=== PATIENT | female | born 2005 | race Two or more races ===

== ENCOUNTER 2024-02-17 16:09 | Emergency (ER) | payer MEDICAID, OTHER ==
[~2024-02-17] VITALS: Ht 157.5 cm; Wt 54.0 kg
[2024-02-17 16:36] VITALS: BP 117/71; PULSE 107; RESP 18; O2SAT 97
[2024-02-17] MEDS: ONDANSETRON ODT 4 MG TAB PO ONE (17:24)
[2024-02-17 17:50] LABS: Basophils # (auto) 0 10 ^3/uL (0-0.2); Basophils % (auto) 0.2 % (0.0-2.0); Eosinophils # (auto) 0 10 ^3/uL (0-0.8); Eosinophils % (auto) 0.3 % (0.0-7.0); Hemoglobin 14.9 g/dL (12.2-16.2); Lymphocytes # (auto) 0.7 10 ^3/uL (0.4-5.4); Lymphocytes % (auto) 10.3 % (10.0-50.0); Mean Corpuscular Hemoglobin 32.6 pg (28.0-32.0); Mean Corpuscular Hgb Conc. 35.6 g/dL (32.0-36.0); Mean Corpuscular Volume 91.8 fL (80.0-100.0); Monocytes # (auto) 0.6 10 ^3/uL (0-1.3); Monocytes % (auto) 9.4 % (0.0-12.0); Neutrophils # (auto) 5.4 10 ^3/uL (1.6-8.6); Neutrophils % (auto) 79.8 % (37.0-80.0); Platelet Count (auto) 229 10^3/uL (140-450); Red Blood Cells 4.57 10^6/uL (4.0-5.20); Red Cell Distribution Width 12.5 % (11.8-14.3); White Blood Cell 6.7 10^3/uL (4.4-10.8)
[2024-02-17 17:57] LABS: Chloride 107 mmol/L (98-107); Potassium 3.6 mmol/L (3.5-5.1); Sodium 140 mmol/L (136-145)
[2024-02-17 17:58] LABS: Anion Gap 8 (5-15); Carbon Dioxide 25 mmol/L (20-31)
[2024-02-17 17:59] LABS: Calcium 9.4 mg/dL (8.7-10.4)
[2024-02-17 18:03] LABS: BUN/Creatinine Ratio 9.6 (10.0-20.0); Blood Urea Nitrogen 8 mg/dL (9-23); Glucose 96 mg/dL (74-106)
[2024-02-17 18:23] LABS: Urine Bacteria FEW /hpf (None Seen); Urine Blood Negative /uL (Negative); Urine Clarity Turbid (Clear); Urine Color Light-Orange (Yellow); Urine Mucus FEW (None Seen); Urine Protein, UAD 1+ (Negative); Urine Urobilinogen 2 mg/dL (Negative); Urine WBC 7 /hpf (0 - 5)
[2024-02-17] MEDS ORDERED: ZOFR4T PO (18:38)
== END 2024-02-17 19:12 | disposition home or self-care (01) ==
LOC: ER 16:09
DX: A05.9 Bacterial foodborne intoxication, unspecified (principal); Z79.899 Other long term (current) drug therapy
CPT/HCPCS: 36415; 80048; 81001; 81025; 85025; 99283; Q0162

== ENCOUNTER 2024-03-27 19:44 | Day surgery (SDC) | payer MEDICAID ==
[~2024-03-27] VITALS: Ht 157.5 cm; Wt 58.5 kg
[~2024-03-27 19:44] MED LIST: ZOFR4T PO
[2024-03-27 20:30] LABS: Basophils # (auto) 0 10 ^3/uL (0-0.2); Basophils % (auto) 0.4 % (0.0-2.0); Eosinophils # (auto) 0.1 10 ^3/uL (0-0.8); Eosinophils % (auto) 1.5 % (0.0-7.0); Hematocrit 37.6 % (36.0-46.0); Hemoglobin 13.5 g/dL (12.2-16.2); Lymphocytes # (auto) 2.4 10 ^3/uL (0.4-5.4); Lymphocytes % (auto) 30.9 % (10.0-50.0); Mean Corpuscular Hgb Conc. 35.9 g/dL (32.0-36.0); Monocytes # (auto) 0.6 10 ^3/uL (0-1.3); Monocytes % (auto) 7.6 % (0.0-12.0); Neutrophils # (auto) 4.6 10 ^3/uL (1.6-8.6); Neutrophils % (auto) 59.6 % (37.0-80.0); Nucleated Red Blood Cells % 0.1 %; Platelet Count (auto) 267 10^3/uL (140-450); Red Blood Cells 4.09 10^6/uL (4.0-5.20); White Blood Cell 7.7 10^3/uL (4.4-10.8)
--- NOTE | 2024-03-27 20:31 | ED.PDOC ---
History of Present Illness HPI Comments 18 y/o F, with a Hx of untreated anxiety and bipolar disorder, presents with c/o non-radiating, lower abdominal pain and abnormal vaginal bleeding, today. Patient endorses on, recently, learning of her first ([id number]) and having onset of sever abdominal pain for the past 1-2 weeks, with light spotting that has, gradually, gotten heavier within the past week. Patient comments on pain at its worst being a 10/10 and it, now, being a 7/10. Patient informs further on taking a Plan B pill on 02/14/24 and her LMP taking place 02/15/24. Patient states on having a BODY SHOP MANAGER and consulting them regarding symptoms and being told on those symptoms to be expected with her in addition to giving an expected delivery date of 11/2024. Patient denies having any hematuria, nausea, vomiting, diarrhea, weakness, lightheadedness, or other associated symptoms or modifiers at this time. Chief Complaint: Vaginal Bleed Time Seen by MD: 19:55 Reviewed Notes: Nurses Notes, Medications, Allergies Allergies: Coded Allergies: NO KNOWN ALLERGIES (Unverified , 02/17/24) Home Meds Active Scripts Hydrocodone-Acetaminophen (Hydrocodone/Acetaminophen 5-325 mg) 1 Tab Tab, 1 TAB PO Q6HPRN PRN for 5 Days, #20 TAB Prov:CLOVIS LEWIS DO 03/27/24 Ibuprofen (Ibuprofen) 800 Mg Tab, 800 MG PO TID PRN for 15 Days, #40 TAB Prov:CLOVIS LEWIS DO 03/27/24 Ondansetron Odt 4MG Tab (ZOFRAN PO) 4 Mg Tb, 4 MG PO Q8HP PRN for 5 Days, #15 TAB ODT TAB-DISSOLVE IN MOUTH, THEN SWALLOW Prov:OVIDIO VASQUEZ MD 02/17/24 Information Source: Patient Mode of Arrival: Ambulatory Severity: Moderate Timing: Weeks Duration: Since onset Prehospital treatment: None Past Medical History PAST MEDICAL HISTORY: Anxiety Past Medical History (Other): bipolar disorder Surgical History: Denies all surgeries BRONZER History: No Pertinent BRONZER History 1 Para 0 AB 0 LMP 02/15/2024 Family History Family History: Unknown Social History Smoker: Non-Smoker Alcohol: Denies ETOH Use Drugs: Denies Drug Use Lives In: Home Constitutional: denies: chills, diaphoresis, fatigue, fever, malaise, sweats, weakness, others EENTM: denies: blurred vision, double vision, ear bleeding, ear discharge, ear drainage, ear pain, ear ringing, eye pain, eye redness, hearing loss, mouth pain, mouth swelling, nasal discharge, nose bleeding, nose congestion, nose pain, photophobia, tearing, throat pain, throat swelling, voice changes, others Respiratory: denies: cough, hemoptysis, orthopnea, SOB at rest, shortness of breath, SOB with excertion, stridor, wheezing, others Cardiovascular: denies: chest pain, dizzy spells, diaphoresis, Dyspnea on exertion, edema, irregular heart beat, left arm pain, lightheadedness, palpitations, PND, syncope, others Gastrointestinal: reports: abdominal pain; denies: abdomen distended, blood streaked bowels, constipated, diarrhea, dysphagia, difficulty swallowing, hematemesis, melena, nausea, poor appetite, poor fluid intake, rectal bleeding, rectal pain, vomiting, others Genitourinary: reports: abnormal vagina bleeding; denies: burning, dyspareunia, dysuria, flank pain, frequency, hematuria, incontinence, pain, , vagina discharge, urgency, others Neurological: denies: dizziness, fainting, headache, left sided numbness, left sided weakness, numbness, paresthesia, pre-existing deficit, right sided numbness, right sided weakness, seizure, speech problems, tingling, tremors, weakness, others Musculoskeletal: denies: back pain, gout, joint pain, joint swelling, muscle pain, muscle stiffness, neck pain, others Integumetry: denies: bruises, change in color, change in hair/nails, dryness, laceration, lesions, lumps, rash, wounds, others Allergic/Immunocompromised: denies: Difficulty Healing, Frequent Infections, Hives, Itching, others Hematologic/Lymphatic: denies: anemia, blood clots, easy bleeding, easy bruising, swollen glands, others Endocrine: denies: excessive hunger, excessive sweating, excessive thirst, excessive urination, flushing, intolerance to cold, intolerance to heat, unexplained weight gain, unexplained weight loss, others Psychiatric: denies: anxiety, bipolar disorder, depression, hopeless, panic disorder, schizophrenia, sleepless, suicidal, others All Other Systems: Reviewed and Negative Physical Exam General Appearance: No Apparent Distress, Normal HEENT: Normal ENT Inspection, Pharynx Normal, TMs Normal Neck: Full Range of Motion, Non-Tender, Normal, Normal Inspection Respiratory: Chest Non-Tender, Lungs Clear, No Accessory Muscle Use, No Respiratory Distress, Normal Breath Sounds Cardiovascular: No Edema, No JVD, No Murmur, No Gallop, Normal Peripheral Pulses, Regular Rate/Rhythm Breast Exam: Deferred Gastrointestinal: No Organomegaly, Non Tender, No Pulsatile Mass, Normal Bowel Sounds, Soft Genitalia: Deferred Pelvic: Deferred Rectal: Deferred Extremities: No calf tenderness, Normal capillary refill, Normal inspection, Normal range of motion, Non-tender, No pedal edema Musculoskeletal : Apperance: Normal Neurologic: Alert, grapple operator II-XII nml as Tested, No Motor Deficits, Normal Affect, Normal Mood, No Sensory Deficits Cerebellar Function: Normal Reflexes: Normal Skin: Dry, Normal Color, Warm Lymphatic: No Adenopathy Was a procedure done? Was a procedure done?: No Differential Dx Considerations may include: menorrhagia, metrorrhagia, menometrorrhagia, dysmenorrhea, , ectopic , UTI, viral syndrome X-Ray, Labs, Meds, VS Vital Signs Date Time Temp Pulse Resp B/P (MAP) Pulse Ox O2 Delivery O2 Flow Rate FiO2 03/28/24 00:13 103 11 100 Room Air* 0 21 03/27/24 23:13 98.2 103 11 125/105 (112) 100 98.2 03/27/24 19:50 99.1 92 18 121/81 (94) 99 Lab Test 03/27/24 20:23 03/27/24 20:06 Range/Units Urine Color Light-yellow Yellow Urine Clarity Turbid H Clear Urine pH 5.5 5.0-9.0 Urine Specific Mck[place] 1.011 1.001-1.035 Urine Protein Negative Negative Urine Ketones Negative Negative Urine Blood 2+ H Negative /uL Urine Nitrite Negative Negative Urine Bilirubin Negative Negative Urine Urobilinogen Normal Negative mg/dL Urine Leukocyte Esterase Negative Negative /uL Urine RBC 7 0 - 4 /hpf Urine WBC 5 0 - 5 /hpf Urine Squamous Epithelial Cells Mod <5 /hpf Urine Bacteria Few H None Seen /hpf Urine Glucose Trace Normal mg/dL White Blood Count 7.7 4.4-10.8 10^3/uL Red Blood Count 4.09 4.0-5.20 10^6/uL Hemoglobin 13.5 12.2-16.2 g/dL Hematocrit 37.6 36.0-46.0 % Mean Corpuscular Volume 92.0 80.0-100.0 fL Mean Corpuscular Hemoglobin 33.0 H 28.0-32.0 pg Mean Corpuscular Hemoglobin Concent 35.9 32.0-36.0 g/dL Red Cell Distribution Width 12.0 11.8-14.3 % Platelet Count 267 140-450 10^3/uL Mean Platelet Volume 7.3 6.9-10.8 fL Neutrophils (%) (Auto) 59.6 37.0-80.0 % Lymphocytes (%) (Auto) 30.9 10.0-50.0 % Monocytes (%) (Auto) 7.6 0.0-12.0 % Eosinophils (%) (Auto) 1.5 0.0-7.0 % Basophils (%) (Auto) 0.4 0.0-2.0 % Neutrophils # (Auto) 4.6 1.6-8.6 10 ^3/uL Lymphocytes # (Auto) 2.4 0.4-5.4 10 ^3/uL Monocytes # (Auto) 0.6 0-1.3 10 ^3/uL Eosinophils # (Auto) 0.1 0-0.8 10 ^3/uL Basophils # (Auto) 0 0-0.2 10 ^3/uL Nucleated Red Blood Cells 0.1 % Sodium Level 139 136-145 mmol/L Potassium Level 3.5 3.5-5.1 mmol/L Chloride Level 107 98-107 mmol/L Carbon Dioxide Level 26 20-31 mmol/L Anion Gap 6 5-15 Blood Urea Nitrogen 6 L 9-23 mg/dL Creatinine 0.76 0.550-1.02 mg/dL Glomerular Filtration Rate Calc 116 >90 mL/min BUN/Creatinine Ratio 7.9 L 10.0-20.0 Serum Glucose 131 H 74-106 mg/dL Calcium Level 9.8 8.7-10.4 mg/dL Total Bilirubin 0.5 0.2-1.0 mg/dL Aspartate Amino Transferase (AST) 8 L 13-40 U/L Alanine Aminotransferase (ALT) 11 7-40 U/L Alkaline Phosphatase 83 46-116 U/L Total Protein 7.3 5.7-8.2 g/dL Albumin 4.5 3.2-4.8 g/dL Beta HCG, Quantitative 2911.7 H 1.5-4.2 mIU/mL X-Ray, Labs, Meds, VS Comment Spoke with Dr.Garibaldy KITCHEN on-call, he was to take patient to surgery tonight. Time of 1ST Reevaluation: 20:25 Reevaluation 1ST: Unchanged Patient Education/Counseling: Diagnosis, Treatment Family Education/Counseling: No Family Present Departure 1 Departure Time of Disposition: 00:32 Impression: Primary Impression: Ectopic of right ovary Disposition: ADMITTED INPATIENT Condition: Fair e-Prescriptions Hydrocodone-Acetaminophen (Hydrocodone/Acetaminophen 5-325 mg) 1 Tab Tab 1 TAB PO Q6HPRN PRN for 5 Days, #20 TAB Prov: CLOVSI LEWIS DO 03/27/24 Ibuprofen (Ibuprofen) 800 Mg Tab 800 MG PO TID PRN for 15 Days, #40 TAB Prov: CLOVIS LEWIS DO 03/27/24 Discharged With: Self Critical Care Note Critical Care Time?: No Stability Stability form required: No Heart Score Heart Score: Heart Score Response (Comments) Value History N/A 0 EKG N/A 0 Age N/A 0 Risk Factors N/A 0 Troponin N/A 0 Total 0 I personally scribed for DAYAN STRANGE ([email or web address]) on 03/27/24 at 20:31. Electronically submitted by Blade Charles ([email or web address]). DAYAN STRANGE Mar 27, 2024 20:31
[2024-03-27 20:48] LABS: Alanine Aminotransferase 11 U/L (7-40); Albumin 4.5 g/dL (3.2-4.8); Alkaline Phosphatase 83 U/L (46-116); Anion Gap 6 (5-15); Aspartate Aminotransferase 8 U/L (13-40); BUN/Creatinine Ratio 7.9 (10.0-20.0); Bilirubin, Total 0.5 mg/dL (0.2-1.0); Blood Urea Nitrogen 6 mg/dL (9-23); Calcium 9.8 mg/dL (8.7-10.4); Carbon Dioxide 26 mmol/L (20-31); Chloride 107 mmol/L (98-107); Glucose 131 mg/dL (74-106); Potassium 3.5 mmol/L (3.5-5.1); Sodium 139 mmol/L (136-145)
[2024-03-27 20:49] LABS: Total Protein 7.3 g/dL (5.7-8.2)
[2024-03-27 20:55] LABS: Urine Bacteria FEW /hpf (None Seen); Urine Blood 2+ /uL (Negative); Urine Clarity Turbid (Clear); Urine Color Light-Yellow (Yellow); Urine Protein, UAD Negative (Negative); Urine Specific Gravity 1.011 (1.001-1.035); Urine Squamous Epithelial Cell MOD /hpf (<5); Urine Urobilinogen Normal (Negative); Urine WBC 5 /hpf (0 - 5); Urine pH 5.5 (5.0-9.0)
--- NOTE | 2024-03-27 23:02 | DVH ---
OBSTETRIC ULTRASOUND PRIOR TO 14 WEEKS CLINICAL INDICATION: abd pain/ vag bleed TECHNIQUE: Multiple grayscale ultrasound images were obtained of the pelvis via transabdominal and tr ansvaginal approach for obstetric evaluation. Limited color Doppler and spectral Doppler acquisitions were also obtained. COMPARISON: None FINDINGS: Uterus: 8.2 x 6.0 x 6.7 cm. No intrauterine gestational sac Right adnexa: right ovary 3.6 x 2.6 x 3.8 cm. Normal arterial blood flow in the ovary. No right adne xal mass seen. Simple cyst in the right ovary measures 2.2 cm Left adnexa: left ovary 1.9 x 1.6 x 2.2 cm. Normal arterial blood flow in the ovary. No left adnexal mass seen. There is a gestational sac with a yolk sac adjacent to the left ovary measuring 0.6 cm. A yolk sac is visualized. No pole is seen at this time. Other: Complex pelvic fluid with intermediate echogenicity likely blood products. IMPRESSION: 1. Left adnexal ectopic is visualized. 2. Hemoperitoneum in the pelvis. Critical Result: Left ectopic . Findings discussed with Yasir JARA , at 03/27/2024 10:56 PM, and acknowledged receipt and understanding of the findings. ..
--- NOTE | 2024-03-27 23:57 | DVHHP2 ---
CREDIT ADJUSTER CC & HPI Date Date of Admission: Mar 27, 2024 Chief Complaints: Reason for admission: Left Ectopic (tubal) History of Present Complaints History of Present Complaints 18y G1Po LMP 02/15/24 EGA 6 weeks Presented with pelvic pain and vaginal bleeding x 1 week Pelvic US reveal GS and YS in left adnexa, no pole/FHR seen Complex free fluid in pelvis. Pain level 6/10 now, earlier it was 10/10. HCG quant 2911 Blood type A Rh positive. Past Medical History Cardiac: No pertinent Hx Pulmonary: No pertinent Hx Central Nervous System: No pertinent Hx GI: No pertinent Hx Hemotology/Oncology: No pertinent Hx Hepatobiliary: No pertinent Hx Psychiatric: No pertinent Hx Musculoskeletal: No pertinent Hx Rheumotologic: No pertinent Hx Infectious Disease: No peritnent Hx ENT: No pertinent Hx Renal/: No pertinent Hx Endocrine: No pertinent Hx Dermatology: No pertinent Hx Past Surgical History: No pertinent Hx CREDIT ADJUSTER History CREDIT ADJUSTER History CREDIT ADJUSTER History: Denies any history of STI Allergies: Coded Allergies: NO KNOWN ALLERGIES (Unverified , 02/17/24) Home Meds Active Scripts Hydrocodone-Acetaminophen (Hydrocodone/Acetaminophen 5-325 mg) 1 Tab Tab, 1 TAB PO Q6HPRN PRN for 5 Days, #20 TAB Prov:CLOVIS LEWIS DO 03/27/24 Ibuprofen (Ibuprofen) 800 Mg Tab, 800 MG PO TID PRN for 15 Days, #40 TAB Prov:CLOVIS LEWIS DO 03/27/24 Ondansetron Odt 4MG Tab (ZOFRAN PO) 4 Mg Tb, 4 MG PO Q8HP PRN for 5 Days, #15 TAB ODT TAB-DISSOLVE IN MOUTH, THEN SWALLOW Prov:OVIDIO VASQUEZ MD 02/17/24 Current Medications Current Medications Medications (Trade) Dose Ordered Sig/Isabella Route PRN Reason Start Time Stop Time Status Last Admin Lactated Ringer's 1,000 ml @ 125 mls/hr Q8H IV 03/28/24 00:00 UNV Social History Single. NO EtOH, drug or Tobacco use Occupation, works at [employer] Review of Systems Constitutional: No symptom reported Ears, Nose, & Throat: No symptom reported Eyes: No symptom reported Pulmonary/Respiratory: No symptom reported Cardiovascular: No symptom reported Gastrointestinal: Abdominal Pain Genitourinary: No symptom reported Musculoskeletal: No symptom reported Skin: No symptom reported Psychiatric: No symptom reported Endocrine: No symptom reported Hemotologic/Lymphatic: No symptom reported Physical Exam Physical Exam Vitals: Vital Signs Date Time Temp Pulse Resp B/P (MAP) Pulse Ox O2 Delivery O2 Flow Rate FiO2 03/27/24 19:50 99.1 92 18 121/81 (94) 99 HEENT: NCAT Heart: Rhythm Normal Lungs: Clear Abdomen: Other (Mildly tender in LLQ, no rebound) Extremities: Normal Reflexes: Normal Pediatric Critical Care Nurse/Pelvic Exam: Not done Assessment and Plan Plan Assessment and Plan: DIAGNOSIS: 1. Ectopic (left tubal by Ultrasound with moderate complex free fluid) Plan: Patient declined treatment with MTX, plus surgery recommended instead of medical treatment due to increased free fluid and moderate/severe acute pain suspicious for iminent or ongoing rupture of ectopic Consented for : Operative laparoscopic left (vs. right) Salpingectomy, possible laparotomy, removal of ectopic . Risks of pain, scar, bleeding, infection, injury to bowel/bladder, adjacent organs all discussed w/ patient in detail Patient is Jehova witness, DECLINES ALL BLOOD PRODUCTS. Date of Service: Mar 27, 2024 Billing Provider: CLOVIS LEWIS DO Common Visit Codes: 90218-XEIOFLX INP/OBS CARE (HIGH) CLOVIS LEWIS DO Mar 27, 2024 23:57
[2024-03-27] MEDS ORDERED: IBUP-1456 PO (23:58)
[2024-03-27] MEDS ORDERED: HYDR1TAB97 PO (23:58)
[2024-03-28] MEDS ORDERED: LACTATED RINGER'S 1,000 ML IV SCH
[2024-03-28] MEDS ORDERED: ceFAZolin 2 GM/D5W50ml 50 ML IV ONE
[2024-03-28 00:13] VITALS: PULSE 103; RESP 11; O2SAT 100
[2024-03-28] MEDS ORDERED: PROPOFOL 10 MG/ML 20 ML IV ONE (00:15)
[2024-03-28] MEDS ORDERED: ONDANSETRON HCL 4 MG/2 ML VIAL ONE (00:15)
[2024-03-28] MEDS ORDERED: LIDOCAINE 2% (LOCAL ANESTH.) PF 5ml SDV ONE (00:15)
[2024-03-28] MEDS ORDERED: ceFAZolin 2 GM/D5W100ml 100 ML IV ONE (00:16)
[2024-03-28] MEDS ORDERED: MIDAZOLAM HCL 2MG/2ML 2ml VIAL (1mg/ml) ONE (00:21)
[2024-03-28] MEDS ORDERED: fentaNYL CITRATE 100 MCG/2 ML VL ONE (00:21)
[2024-03-28] MEDS ORDERED: NEOSTIGMINE 1 MG/ML INJ (10mg/10ML VIAL) ONE (01:31)
[2024-03-28] MEDS ORDERED: GLYCOPYRROLATE 0.2 MG/ML 1ML VIAL ONE (01:31)
[2024-03-28 01:47] VITALS: PULSE 102; RESP 15; TEMP 97.1; O2SAT 100
--- NOTE | 2024-03-28 01:48 | DVHDS2 ---
Physician Discharge Progress N Final Diagnosis: Ectopic (Left Tubal ) s/p Left partial salpingectomy Operations or Procedures: Operations or Procedures Operative laparoscopy, evacuation of hemoperitoneum, Left partial salpingectomy Commentary: Commentary Uncomplicated surgery and PACU recovery Hemodynamically stable Rh+ Discharged in stable condition Condition on Discharge: Stable Disposition: Home Discharge Instructions: Diet: Regular Activity: Light activity Activity comment: Pelvic rest x 2 weeks Follow Up/Referral: [address] [facility] make appt please Medications: [place] 5mg, Ibuprofen eRx sent Follow Up Care: Discharge Statement: "Patient was advised to return to the ER or call 911 if any headaches, dizziness, shortness of breath, chest pain, abdominal pain, bleeding, fevers, or worsening of medical condition. Patient was counseled about treatment plan, medications, possible side effects, patientverbalized understanding. All questions were answered to the best of my ability. This discharge took greater then 30 minutes in planning, reviewing documentation, counseling the patient, and discussing with other team members." CLOVIS LEWIS DO Mar 28, 2024 01:48
[2024-03-28] MEDS ORDERED: HYDROmorphone HCL 2 MG/ML VL/or syr ONE (01:52)
[2024-03-28] MEDS: HYDROmorphone HCL 2 MG/ML VL/or syr IV PRN (01:55)
[2024-03-28] MEDS: BUPIVACAINE 0.25% INJ 50ML VIAL ONE (01:59)
[2024-03-28 02:00] VITALS: PULSE 94; RESP 10; O2SAT 96
[2024-03-28] MEDS ORDERED: HYDROmorphone HCL 2 MG/ML VL/or syr IV PRN (02:00)
[2024-03-28 02:27] VITALS: O2SAT 96
[2024-03-28 02:42] VITALS: BP 100/52; PULSE 85; RESP 20
--- NOTE | 2024-03-28 02:59 | DVHOP ---
DATE OF SURGERY: 03/28/2024 PREOPERATIVE DIAGNOSES: * Ectopic . * Hemoperitoneum. FINAL DIAGNOSES: * Ectopic (Left tubal ampullary ) * Hemoperitoneum. PROCEDURES PERFORMED: * Operative laparoscopic left partial salpingectomy. * Evacuation of hemoperitoneum. SURGEON: Kenneth Jones DO PUBLIC HEALTH PROGRAM MANAGER: senior laboratory technician. TYPE OF ANESTHESIA: General endotracheal. ANESTHESIOLOGIST: Dr. Lehman. DESCRIPTION OF FINDINGS: Normal size uterus. Uterine cavity sounds to 9 cm. The right fallopian tube and ovary were within normal limits. Appendix visualized and normal. The left fallopian tube contained a 3 cm ampullary ectopic with partial rupture. There was bleeding from the fimbriated end. There was approximately 50-75 mL of hemoperitoneum present in the cul-de-sac. The ovary was normal on the left and not removed. A partial left salpingectomy performed. TECHNICAL PROCEDURE: After informed consent was obtained, the patient was taken to the operating room where she underwent smooth induction with general anesthesia. The patient was placed in the dorsal lithotomy position in Baltazar stirrups. The vagina, perineum and abdomen were thoroughly prepped, and the patient sterilely draped in usual fashion. A pelvic exam was then performed under anesthesia with the above-noted findings. A weighted speculum was placed into the patient's vagina. The anterior lip of the cervix was grasped with a single tooth tenaculum. Uterine cavity sounded to 9 cm. The cervix was gently dilated with Khan dilators to accommodate a HUMI uterine manipulator. The manipulator was placed transcervically into the uterus. The balloon inflated. A Mccoy catheter was then placed. All instrumentation was removed from the patient's vagina. Attention was then placed to the patient's abdomen where the umbilical stump was everted and elevated with 2 Johny clamps. A 5 mm incision was made at the base of the umbilicus. A Veress needle was placed through the incision into the peritoneal cavity. Intraperitoneal placement was confirmed by the hanging water drop test. Carbon dioxide gas was infused and pneumoperitoneum obtained. Using a 5 mm Optiview trocar, the umbilical port was obtained. There was direct visualization of all abdominal layers. Intraperitoneal placement of the umbilical trocar was confirmed directly with the laparoscope. Survey of the abdomen and pelvis revealed the above-noted findings. Next, a 12 mm trocar was placed under direct visualization to the left of the patient's midline. A 5 mm trocar was placed to the right of midline under direct visualization. The certified physical therapist assistant elevated the fallopian tube. The distal ampullary end contained partial rupture with bleeding from the fimbriated end. There was a large ectopic present with clot adherent to the fallopian tube. Using the LigaSure device, the fallopian tube was divided across the mesosalpinx and detached from its connection to the ovary. The fallopian tube was then taken across the isthmic portion of the fallopian tube. The fallopian tube containing the ectopic was placed in an EndoCatch bag and the specimen delivered through the 12 mm port. The specimen was submitted to pathology. The abdomen and pelvis were thoroughly irrigated. Hemostasis was confirmed. I next proceeded to close the 10 and 12 port using 2 interrupted sutures of 0 Vicryl. Good tissue approximation was obtained. We closed this port using the Dylan-Yusra system. Next, the carbon dioxide gas was released. The instruments and the trocars were removed under direct visualization. The skin incisions were closed with 3-0 Monocryl. The 3 skin incisions were then injected with 0.25% Marcaine with epinephrine, approximately 20 mL of solution was used across the 3 incisions. A thin layer of Dermabond was then placed over the 3 skin incisions with good hemostasis noted. The Mccoy catheter was removed and the uterine manipulator was removed with no bleeding from the cervix. The patient was taken out of lithotomy position, awakened, and taken to recovery room in a stable condition. INTRAOPERATIVE COMPLICATIONS: None. ESTIMATED BLOOD LOSS: Less than 10 mL from the surgery, approximately 75 mL of hemoperitoneum. POSTOPERATIVE CONDITION: Stable. SPECIMENS: Left fallopian tube containing ectopic . MEDICATIONS: The patient received 2 grams of Ancef prior to skin incision. Kenneth Jones DO CG/HEM TID: [id number] [facility]: [id number] [facility]
[2024-03-28] MEDS: ONDANSETRON HCL 4 MG/2 ML VIAL IV ONE (03:10)
== END 2024-03-28 03:17 | disposition home or self-care (01) ==
LOC: ER 19:44 → SUR 19:45 → ER 03-28 00:14 → SUR 03-28 03:17
PROVIDERS: ATTEND Obstetrics & Gynecology
DX: O00.102 Left tubal pregnancy without intrauterine pregnancy (principal); K66.1 Hemoperitoneum; F31.9 Bipolar disorder, unspecified; K21.9 Gastro-esophageal reflux disease without esophagitis; F41.9 Anxiety disorder, unspecified; Z3A.01 Less than 8 weeks gestation of pregnancy
CPT/HCPCS: 36415; 59151; 76801; 76817; 80053; 81001; 84702; 85025; 86850; 86900; 86901; 88305; 96374; 96375; 99285; J0690; J1171; J2003; J2250; J2405; J2704; J3010; J3490

== ENCOUNTER 2024-06-26 | Emergency (ER) | payer MEDICAID, OTHER ==
[~2024-06-26] VITALS: Ht 157.5 cm; Wt 59.3 kg
[~2024-06-26] MED LIST changes: +HYDR1TAB97 PO; +IBUP-1456 PO
[2024-06-26 00:35] VITALS: BP 125/77; PULSE 67; RESP 16; O2SAT 99
== END 2024-06-26 04:32 | disposition left against medical advice (07) ==
LOC: ER
DX: R10.9 Unspecified abdominal pain (principal); Z53.21 Procedure and treatment not carried out due to patient leaving prior to being seen by health care provider

== ENCOUNTER 2024-08-05 15:07 | Emergency (ER) | payer OTHER ==
[~2024-08-05] VITALS: Ht 157.5 cm; Wt 58.3 kg
--- NOTE | 2024-08-05 15:47 | ED.PDOC ---
History of Present Illness HPI Comments 19 year old female presents to the ED with a chief complaint of ingestion onset today (08/05/24). Patient states she was experiencing abdominal pain, took 5 aspirin pills, 3 - 500 mg Ibuprofen pills. Patient states she is not suicidal, just wanted to improve pain. Poison control was called. PMHx anxiety. Denies suicidal ideation, homicidal ideation, nausea, vomiting, diarrhea, headache, dizziness, chest pain, shortness of breath. No other symptoms or modifying factors present at this time. Patient states she has had this abdominal pain for over a month, but does not follow up with the primary care provider or cytogenetics laboratory manager due to insurance concerns. Patient did not look toxic at time of evaluation. Chief Complaint: Ingestion Time Seen by MD: 15:35 Reviewed Notes: Nurses Notes, Medications, Allergies Allergies: Coded Allergies: NO KNOWN ALLERGIES (Unverified , 02/17/24) Home Meds Active Scripts Hydrocodone-Acetaminophen (Hydrocodone/Acetaminophen 5-325 mg) 1 Tab Tab, 1 TAB PO Q6HPRN PRN for 5 Days, #20 TAB Prov:CLOVIS LEWIS DO 03/27/24 Ibuprofen (Ibuprofen) 800 Mg Tab, 800 MG PO TID PRN for 15 Days, #40 TAB Prov:CLOVIS LEWIS DO 03/27/24 Ondansetron Odt 4MG Tab (ZOFRAN PO) 4 Mg Tb, 4 MG PO Q8HP PRN for 5 Days, #15 TAB ODT TAB-DISSOLVE IN MOUTH, THEN SWALLOW Prov:OVIDIO VASQUEZ MD 02/17/24 Information Source: Patient Mode of Arrival: Ambulatory Severity: Moderate Timing: Hours Duration: Since onset Prehospital treatment: Pain Meds Past Medical History PAST MEDICAL HISTORY: Anxiety Past Medical History (Other): Recent abdominal pain concerns Surgical History: Denies all surgeries AIRCRAFT MAINTENANCE TECHNICIAN History: No Pertinent AIRCRAFT MAINTENANCE TECHNICIAN History Family History Family History: Unknown Social History Smoker: Non-Smoker Alcohol: Denies ETOH Use Drugs: Denies Drug Use Lives In: Home Constitutional: denies: chills, diaphoresis, fatigue, fever, malaise, sweats, weakness, others EENTM: denies: blurred vision, double vision, ear bleeding, ear discharge, ear drainage, ear pain, ear ringing, eye pain, eye redness, hearing loss, mouth pain, mouth swelling, nasal discharge, nose bleeding, nose congestion, nose pain, photophobia, tearing, throat pain, throat swelling, voice changes, others Respiratory: denies: cough, hemoptysis, orthopnea, SOB at rest, shortness of breath, SOB with excertion, stridor, wheezing, others Cardiovascular: denies: chest pain, dizzy spells, diaphoresis, Dyspnea on exertion, edema, irregular heart beat, left arm pain, lightheadedness, palpitations, PND, syncope, others Gastrointestinal: reports: abdominal pain; denies: abdomen distended, blood streaked bowels, constipated, diarrhea, dysphagia, difficulty swallowing, hematemesis, melena, nausea, poor appetite, poor fluid intake, rectal bleeding, rectal pain, vomiting, others Genitourinary: denies: abnormal vagina bleeding, burning, dyspareunia, dysuria, flank pain, frequency, hematuria, incontinence, pain, , vagina discharge, urgency, others Neurological: denies: dizziness, fainting, headache, left sided numbness, left sided weakness, numbness, paresthesia, pre-existing deficit, right sided numbness, right sided weakness, seizure, speech problems, tingling, tremors, weakness, others Musculoskeletal: denies: back pain, gout, joint pain, joint swelling, muscle pain, muscle stiffness, neck pain, others Integumetry: denies: bruises, change in color, change in hair/nails, dryness, laceration, lesions, lumps, rash, wounds, others Allergic/Immunocompromised: denies: Difficulty Healing, Frequent Infections, Hives, Itching, others Hematologic/Lymphatic: denies: anemia, blood clots, easy bleeding, easy bruising, swollen glands, others Endocrine: denies: excessive hunger, excessive sweating, excessive thirst, excessive urination, flushing, intolerance to cold, intolerance to heat, unexplained weight gain, unexplained weight loss, others Psychiatric: denies: anxiety, bipolar disorder, depression, hopeless, panic disorder, schizophrenia, sleepless, suicidal, others All Other Systems: Reviewed and Negative Physical Exam General Appearance: Mild Distress ( patient appeared to be in mild discomfort at time of evaluation. Patient was engaging and did not seem altered.), Normal HEENT: Normal ENT Inspection, Pharynx Normal, TMs Normal Neck: Full Range of Motion, Non-Tender, Normal, Normal Inspection Respiratory: Chest Non-Tender, Lungs Clear, No Accessory Muscle Use, No Respiratory Distress, Normal Breath Sounds Cardiovascular: No Edema, No JVD, No Murmur, No Gallop, Normal Peripheral Pulses, Regular Rate/Rhythm Breast Exam: Deferred Gastrointestinal: No Pulsatile Mass, Normal Bowel Sounds, Soft, Other ( Diffuse periumbilical tenderness to palpation abdomen was reasonably soft. No signs of trauma. No pulsatile masses.) Genitalia: Deferred Pelvic: Deferred Rectal: Deferred Extremities: No calf tenderness, Normal capillary refill, Normal inspection, Normal range of motion, Non-tender, No pedal edema Musculoskeletal : Apperance: Normal Neurologic: Alert, No Motor Deficits, Normal Affect, Normal Mood, No Sensory Deficits Cerebellar Function: Normal Reflexes: Normal Skin: Dry, Normal Color, Warm Lymphatic: No Adenopathy Was a procedure done? Was a procedure done?: No Differential Dx Considerations may include: Overdose of ibuprofen and aspirin, abdominal pain, UTI, drug use, sepsis, electrolyte abnormality X-Ray, Labs, Meds, VS Vital Signs Date Time Temp Pulse Resp B/P (MAP) Pulse Ox O2 Delivery O2 Flow Rate FiO2 08/05/24 16:00 98.3 78 16 121/73 (89) 99 98.3 Lab Test 08/05/24 15:52 08/05/24 00:00 Range/Units White Blood Count 8.7 4.4-10.8 10^3/uL Red Blood Count 4.58 4.0-5.20 10^6/uL Hemoglobin 14.4 12.2-16.2 g/dL Hematocrit 41.7 36.0-46.0 % Mean Corpuscular Volume 91.0 80.0-100.0 fL Mean Corpuscular Hemoglobin 31.5 28.0-32.0 pg Mean Corpuscular Hemoglobin Concent 34.6 32.0-36.0 g/dL Red Cell Distribution Width 12.4 11.8-14.3 % Platelet Count 301 140-450 10^3/uL Mean Platelet Volume 7.4 6.9-10.8 fL Neutrophils (%) (Auto) 78.2 37.0-80.0 % Lymphocytes (%) (Auto) 16.9 10.0-50.0 % Monocytes (%) (Auto) 4.5 0.0-12.0 % Eosinophils (%) (Auto) 0.1 0.0-7.0 % Basophils (%) (Auto) 0.3 0.0-2.0 % Neutrophils # (Auto) 6.8 1.6-8.6 10 ^3/uL Lymphocytes # (Auto) 1.5 0.4-5.4 10 ^3/uL Monocytes # (Auto) 0.4 0-1.3 10 ^3/uL Eosinophils # (Auto) 0 0-0.8 10 ^3/uL Basophils # (Auto) 0 0-0.2 10 ^3/uL Nucleated Red Blood Cells 0.1 % Sodium Level 140 136-145 mmol/L Potassium Level 4.2 3.5-5.1 mmol/L Chloride Level 110 H 98-107 mmol/L Carbon Dioxide Level 20 20-31 mmol/L Anion Gap 10 5-15 Blood Urea Nitrogen 7 L 9-23 mg/dL Creatinine 0.87 0.550-1.02 mg/dL Glomerular Filtration Rate Calc 98 >90 mL/min BUN/Creatinine Ratio 8.0 L 10.0-20.0 Serum Glucose 97 74-106 mg/dL Calcium Level 9.8 8.7-10.4 mg/dL Salicylates Level 15.6 -30 mg/dL Urine Color Light-yellow Yellow Urine Clarity Clear Clear Urine pH 6.5 5.0-9.0 Urine Specific [place] 1.018 1.001-1.035 Urine Protein Negative Negative Urine Ketones Negative Negative Urine Blood 3+ H Negative /uL Urine Nitrite Negative Negative Urine Bilirubin Negative Negative Urine Urobilinogen Normal Negative mg/dL Urine Leukocyte Esterase Negative Negative /uL Urine RBC 1 0 - 4 /hpf Urine Microscopic WBC 3 0-5 /HPF Urine Squamous Epithelial Cells Few <5 /hpf Urine Bacteria None seen None Seen /hpf Urine Mucus Few None Seen Urine Glucose Normal Normal mg/dL Urine Opiates Screen Neg NEGATIVE Urine Fentanyl Screen Neg NEGATIVE Urine Barbiturates Screen Neg NEGATIVE Urine Phencyclidine Screen Neg NEGATIVE Urine Amphetamines Screen Neg NEGATIVE Urine Benzodiazepines Screen Neg NEGATIVE Urine Cocaine Screen Neg NEGATIVE Urine Cannabinoids Screen Pos NEGATIVE X-Ray, Labs, Meds, VS Comment All studies performed the ED were evaluated by me personally. laboratories were unremarkable for any systemic process and urinalysis was unremarkable for any urinary tract concerns. Drug screen was positive for cannabis. Patient responded well to medication dispensed. Advised patient utilize medication as needed for symptomatic relief in additionally, patient will have to establish a primary care provider or follow up as she at some point in time will need to see a cytogenetics laboratory manager if the abdominal pain complaints continued. Time of 1ST Reevaluation: 17:56 Reevaluation 1ST: Improved Consultation: PCP, GI Patient Education/Counseling: Diagnosis, Treatment, Prognosis Family Education/Counseling: Diagnosis, Treatment, No Family Present Departure 1 Departure Time of Disposition: 17:57 Impression: Primary Impression: Overdose by ingestion Additional Impression: Abdominal pain Disposition: 01 HOME / SELF CARE / HOMELESS Condition: Stable Additional Instructions: Advised patient utilize medication as directed and as needed for symptomatic relief. Patient needs to establish a primary care provider as she will require a cytogenetics laboratory manager if her abdominal pain complaints continued. e-Prescriptions Ondansetron Odt 4MG Tab (ZOFRAN PO) 4 Mg Tb 4 MG PO Q6HP PRN, #20 TAB ODT TAB-DISSOLVE IN MOUTH, THEN SWALLOW Prov: RAVEN ROSAS PAC 08/05/24 Dicyclomine Hcl (BENTYL CAPSULE) 10 Mg Cp 1 CAP PO Q6HP PRN, #20 CAP 0 Refills Prov: RAVEN ROSAS PAC 08/05/24 Discharged With: Self, Friend Critical Care Note Critical Care Time?: No Stability Stability form required: No Heart Score Heart Score: Heart Score Response (Comments) Value History N/A 0 EKG N/A 0 Age N/A 0 Risk Factors N/A 0 Troponin N/A 0 Total 0 I personally scribed for RAVEN ROSAS PAC ([email or web address]) on 08/05/24 at 15:47. Electronically submitted by Tamar Greenwood ([email or web address]). RAVEN ROSAS PAC Aug 05, 2024 15:47
[2024-08-05 16:12] LABS: Basophils # (auto) 0 10 ^3/uL (0-0.2); Basophils % (auto) 0.3 % (0.0-2.0); Eosinophils # (auto) 0 10 ^3/uL (0-0.8); Eosinophils % (auto) 0.1 % (0.0-7.0); Hematocrit 41.7 % (36.0-46.0); Hemoglobin 14.4 g/dL (12.2-16.2); Lymphocytes # (auto) 1.5 10 ^3/uL (0.4-5.4); Lymphocytes % (auto) 16.9 % (10.0-50.0); Mean Corpuscular Hemoglobin 31.5 pg (28.0-32.0); Mean Corpuscular Hgb Conc. 34.6 g/dL (32.0-36.0); Monocytes # (auto) 0.4 10 ^3/uL (0-1.3); Monocytes % (auto) 4.5 % (0.0-12.0); Neutrophils # (auto) 6.8 10 ^3/uL (1.6-8.6); Neutrophils % (auto) 78.2 % (37.0-80.0); Nucleated Red Blood Cells % 0.1 %; Platelet Count (auto) 301 10^3/uL (140-450); Red Blood Cells 4.58 10^6/uL (4.0-5.20); Red Cell Distribution Width 12.4 % (11.8-14.3); White Blood Cell 8.7 10^3/uL (4.4-10.8)
[2024-08-05 16:18] LABS: Potassium 4.2 mmol/L (3.5-5.1); Sodium 140 mmol/L (136-145)
[2024-08-05 16:19] LABS: Anion Gap 10 (5-15); Calcium 9.8 mg/dL (8.7-10.4); Carbon Dioxide 20 mmol/L (20-31)
[2024-08-05 16:21] LABS: Chloride 110 mmol/L (98-107)
[2024-08-05 16:24] LABS: Glucose 97 mg/dL (74-106)
[2024-08-05 16:38] LABS: Blood Urea Nitrogen 7 mg/dL (9-23)
[2024-08-05 17:06] LABS: Urine Bacteria None Seen /hpf (None Seen)
[2024-08-05 17:27] LABS: Cannabinoid Screen, Urine Pos (NEGATIVE)
[2024-08-05 17:28] LABS: Amphetamine Screen, Urine Neg (NEGATIVE); Barbiturate Scree,Urine Neg (NEGATIVE); Benzodiazephine Screen, Urine Neg (NEGATIVE); Cocaine Screen, Urine Neg (NEGATIVE); Opiate Scree,Urine Neg (NEGATIVE); Phencyclidine Screen, Urine Neg (NEGATIVE)
[2024-08-05 17:31] LABS: Urine Blood 3+ /uL (Negative); Urine Clarity Clear (Clear); Urine Color Light-Yellow (Yellow); Urine Mucus FEW (None Seen); Urine Protein, UAD Negative (Negative); Urine Specific Gravity 1.018 (1.001-1.035); Urine Squamous Epithelial Cell FEW /hpf (<5); Urine Urobilinogen Normal (Negative); Urine WBC 3 /HPF (0-5); Urine pH 6.5 (5.0-9.0)
[2024-08-05] MEDS ORDERED: DICY10CA PO (17:58)
[2024-08-05] MEDS ORDERED: ZOFR4T PO (17:58)
[2024-08-05] MEDS: ONDANSETRON ODT 4 MG TAB PO ONE (18:01)
[2024-08-05] MEDS: SODIUM CHLORIDE 0.9% 1,000 ML IV ONE (18:04)
[2024-08-05] MEDS: DICYCLOMINE HCL (10MG/ML) 2 ML AMPULE IM ONE (18:23)
[2024-08-05 20:55] VITALS: BP 127/87; PULSE 89; RESP 19; TEMP 98.3; O2SAT 97
== END 2024-08-05 20:56 | disposition home or self-care (01) ==
LOC: ER 15:07
DX: T65.91XA Toxic effect of unspecified substance, accidental (unintentional), initial encounter (principal); R10.84 Generalized abdominal pain; F41.9 Anxiety disorder, unspecified; Z79.899 Other long term (current) drug therapy; Y92.89 Other specified places as the place of occurrence of the external cause
CPT/HCPCS: 36415; 80048; 80307; 80329; 81001; 85025; 96360; 96361; 96372; 99283; J0500; J7030; Q0162